=== PATIENT | male | born 1950 | race Caucasian/White ===

== ENCOUNTER 2018-07-08 05:16 | Inpatient (IN) | payer OTHER ==
[2018-07-08] VITALS (9 sets, daily range): BP systolic 111–132; BP diastolic 61–84
[~2018-07-08] VITALS: Ht 180.3 cm; Wt 113.4 kg
[2018-07-08] MEDS ORDERED: ACETAMINOPHEN 325 MG TABLET ONE (05:44)
[2018-07-08] MEDS ORDERED: oxyCODONE HCL SR 10MG TAB.SR.12H PO ONE (05:44)
[2018-07-08] MEDS ORDERED: CELECOXIB 100 MG CAPSULE ONE (05:44)
[2018-07-08] MEDS ORDERED: BACITRACIN 50000 UNITS/VIAL ONE (06:10)
[2018-07-08] MEDS ORDERED: MIDAZOLAM HCL 2 MG/2ML VIAL ONE (06:39)
[2018-07-08] MEDS ORDERED: SCOPOLAMINE HBR 1 EA PATCH.TD72 TD ONE (06:40)
[2018-07-08] MEDS ORDERED: MORPHINE SULFATE/PF 10 MG/10ML (1MG/ML) AMPUL ONE (06:40)
[2018-07-08] MEDS ORDERED: FENTANYL PF 100MCG/2ML AMPUL ONE (06:41)
[2018-07-08] MEDS ORDERED: BUPIVACAINE 0.75% DEXT-PF 2 ML AMPUL ONE (07:00)
[2018-07-08] MEDS ORDERED: TRANEXAMIC ACID 3,000 MG in SODIUM CHLORIDE IRRIG SOLUTION 70 ML IR ONE (07:00)
--- NOTE | 2018-07-08 10:00 | NUR ---
Patient arrived on unit via bed from Day-Surgery with PACU staff. Awake, alert and oriented x4. Stable condition. Family present at bedside. Vital signs stable upon arrival.
[2018-07-08] MEDS ORDERED: SENNOSIDES 8.6 MG TABLET PO PRN (10:30)
[2018-07-08] MEDS ORDERED: DOCUSATE SODIUM 250 MG CAPSULE PO PRN (10:30)
[2018-07-08] MEDS ORDERED: BISACODYL SUPP (10 MG) 10 MG/SUPP.RECT SUPP.RECT RC PRN (10:30)
[2018-07-08] MEDS ORDERED: ZOLPIDEM TARTRATE 5 MG TABLET PO PRN (10:30)
[2018-07-08] MEDS ORDERED: HYDROCODONE/APAP 5/325MG 1 EACH TABLET PO PRN (10:30)
[2018-07-08] MEDS ORDERED: HYDROMORPHONE INJ 2 MG/ML DISP.SYRIN IV PRN (10:30)
[2018-07-08] MEDS ORDERED: ONDANSETRON HCL/PF 4 MG/2 ML VIAL IVP PRN (10:30)
[2018-07-08] MEDS ORDERED: ACETAMINOPHEN 325 MG TABLET PO PRN (10:30)
--- NOTE | 2018-07-08 10:30 | NUR ---
MS licensing services clerk Notes Patient awake, resting in bed. Semi-Fowlers position. Alert and oriented x4, able to make needs known. No complaints of shortness of breath, chest pain or post-op knee pain at this time. Respirations even and unlabored on 2 L oxygen via nasal cannula, no acute distress noted. Peripheral IV to the left hand 18 gauge, intact, patent and infusing LR at 100 ml/hr. Godinez catheter in place from OR, intact and draining clear, yellow urine. Skin assessment completed, skin intact. Dressing (ellen wrap) to the right lower extremity/knee in place from OR, intact with no signs of strikethrough. Post-operative orders noted to be carried out. Oriented patient and family to unit, room and safety precautions. Personal belongings inventoried. Vital signs to be completed per post-operative protocol. Updated patient on current plan of care and safety measures. Safety and fall precautions in place: bed in lowest and locked position, side rails up x2, bed alarm on, call light and personal possessions within reach. Family present at bedside. Will continue to monitor and intervene as needed. Addendum: 07/08/18 at 1827 by TRAVIS MICHAEL RN External internet marketing consultant in place: currently normal sinus rhythm at 68 bpm.
[2018-07-08] MEDS ORDERED: diphenhydrAMINE HCL 25 MG CAPSULE PO PRN (11:00)
[2018-07-08] MEDS ORDERED: NALOXONE HCL 0.4 MG/ML AMPUL IV PRN ×2 (11:00)
[2018-07-08] MEDS ORDERED: HYDROMORPHONE 1 MG/1 ML DISP.SYRIN IV PRN (11:00)
[2018-07-08] MEDS ORDERED: CLONIDINE HCL 0.1 MG TABLET PO PRN (11:00)
[2018-07-08] MEDS ORDERED: MAGNESIUM HYDROXIDE 30 ML UDC PO PRN (11:00)
[2018-07-08] MEDS ORDERED: ONDANSETRON HCL/PF 4 MG/2 ML VIAL IV PRN (11:00)
[2018-07-08] MEDS ORDERED: HYDROMORPHONE 1 MG/1 ML DISP.SYRIN SQ PRN (11:00)
[2018-07-08] MEDS ORDERED: MAG HYDROX/AL HYDROX/SIMETH 30 ML UDC PO PRN (11:00)
[2018-07-08] MEDS ORDERED: diphenhydrAMINE HCL 50 MG/ML VIAL IV PRN (11:00)
[2018-07-08] MEDS ORDERED: oxyCODONE IR immediate release 5 MG PO PRN (11:00)
[2018-07-08] MEDS: IV LR 1000 ML 1,000 ML IV PRN ×2 (16:01→23:51)
[2018-07-08] MEDS: DOCUSATE SODIUM 100 MG CAPSULE PO SCH (16:01)
[2018-07-08] MEDS: CEFAZOLIN 1 GM in IV D5W 50 ML IV SCH ×2 (16:01→23:51)
--- NOTE | 2018-07-08 18:23 | NUR ---
oil well gun perforator operatorrattle leak and squeak repairer Notes Patient awake, resting in bed. Semi-Fowlers position. Alert and oriented x4, able to make needs known. No complaints of shortness of breath, chest pain or post-op knee pain at this time. Respirations even and unlabored on room air, no acute distress noted. External secured entrance monitor in place: currently normal sinus rhythm at 71 bpm. Peripheral IV to the left hand 18 gauge, intact, patent and infusing LR at 100 ml/hr. Godinez catheter in place from OR, intact and draining clear, yellow urine. Dressing (ellen wrap) to the right lower extremity/knee in place from OR, intact with no signs of strikethrough. Ice bag placed to site for pain management, no complaints of pain at this time. All due medications given as ordered. Updated patient on current plan of care and safety measures. Safety and fall precautions in place: bed in lowest and locked position, side rails up x2, bed alarm on, call light and personal possessions within reach. Family present at bedside. Will endorse to wall mirror department supervisor RN for continuity of care. Addendum: 07/09/18 at 0745 by TRAVIS MICHAEL RN Correction: Closing Note
--- NOTE | 2018-07-08 19:40 | NUR ---
TELE/RN NOTES RECEIVED PT. LYING IN BED. PT. IS AWAKE, ALERT AND ORIENTED X4. BREATHING EVEN AND UNLABORED ON ROOM AIR. NO SOB, RESPIRATORY DISTRESS OR COMPLAINTS OF PAIN NOTED AT THIS TIME. PT. STATES PAIN MEDICATION HE RECEIVED EARLIER WAS VERY EFFECTIVE AND HIS PAIN IS GONE AT THIS TIME. PT.WITH EXTERNAL PRESIDENT CEO & FOUNDER PRESENT AND INTACT CURRENT RHYTHM = SINUS RHYTHM HR 76. PT. WITH LEFT FOREARM 18 GAUGE PERIPHERAL IV PRESENT, PATENT AND INTACT ADMINISTERING TO PT. LR @ 100ML/HR. PT. WITH RIGHT KNEE POST OP DRESSING AND IMMOBILIZER PRESENT AND INTACT. DRESSING IS CLEAN, DRY AND INTACT. NO BLEEDING OR DRAINAGE NOTED AT THIS TIME. PT. WITH THOMAS CATHETER PRESENT, PATENT AND INTACT DRAINING CLEAR YELLOW URINE. BED LOCKED AND IN LOWEST POSITION, SIDE RAILS UP X2, CALL LIGHT WITHIN REACH, WILL CONTINUE TO MONITOR.
[2018-07-08] MEDS: LORAZEPAM 1 MG TABLET PO SCH (22:25)
[2018-07-08] MEDS: FAMOTIDINE (20 MG) 20 MG TABLET PO SCH (22:25)
[2018-07-09] VITALS (9 sets, daily range): BP systolic 107–151; BP diastolic 72–84
--- NOTE | 2018-07-09 06:21 | NUR ---
TELE/RN NOTES PT. IS LYING IN BED RESTING, EASILY AROUSABLE TO NAME. BREATHING EVEN AND UNLABORED ON 2LPM O2 VIA NC.. NO SOB, RESPIRATORY DISTRESS OR COMPLAINTS OF PAIN NOTED AT THIS TIME. PT.WITH EXTERNAL ENERGY CONSERVATION ENGINEER PRESENT AND INTACT CURRENT RHYTHM = SINUS RHYTHM HR 72. PT. WITH LEFT FOREARM 18 GAUGE PERIPHERAL IV PRESENT, PATENT AND INTACT ADMINISTERING TO PT. LR @ 100ML/HR. PT. WITH RIGHT KNEE POST OP DRESSING AND IMMOBILIZER PRESENT AND INTACT. DRESSING IS CLEAN, DRY AND INTACT. NO BLEEDING OR DRAINAGE NOTED AT THIS TIME. PT. WITH THOMAS CATHETER PRESENT, PATENT AND INTACT DRAINING CLEAR YELLOW URINE. ALL PT. NEEDS MET. BED LOCKED AND IN LOWEST POSITION, SIDE RAILS UP X2, CALL LIGHT WITHIN REACH, WILL ENDORSE TO DAYSHIFT NURSE FOR CONTINUITY OF CARE.
--- NOTE | 2018-07-09 07:30 | NUR ---
credit products officer Closing Notes Patient asleep, resting in bed. Semi-Fowlers position. Alert and oriented x4, able to make needs known. No complaints of shortness of breath, chest pain or post-op knee pain at this time. Respirations even and unlabored on 2 L oxygen via nasal cannula, no acute distress noted. Continuous monitoring in place. External director of cardiac rehabilitation in place: currently normal sinus rhythm at 65 bpm. Peripheral IV to the left hand 18 gauge, intact, patent and infusing LR at 100 ml/hr. Godinez catheter in place from OR, intact and draining clear, yellow urine. Dressing (ellen wrap) to the right lower extremity/knee in place, intact with no signs of strikethrough. Updated patient on current plan of care and safety measures. Safety and fall precautions in place: bed in lowest and locked position, side rails up x2, bed alarm on, call light and personal possessions within reach. Will continue to monitor and intervene as needed. Addendum: 07/09/18 at 1107 by TRAVIS MICHAEL RN Correction: Opening Notes
[2018-07-09] MEDS: ASPIRIN 325 MG TABLET PO SCH (08:27)
[2018-07-09] MEDS: DOCUSATE SODIUM 100 MG CAPSULE PO SCH ×2 (08:27→16:30)
[2018-07-09] MEDS: FAMOTIDINE (20 MG) 20 MG TABLET PO SCH ×2 (08:28→22:02)
[2018-07-09 08:40] LABS: HEMOGLOBIN 15.1 g/dL (13.5-17.5)
[2018-07-09 09:50] LABS: BASOPHILS % (AUTO) 0.3 % (0.0-2.0); EOSINOPHILS % (AUTO) 0.6 % (0.0-6.0); HEMATOCRIT 44 % (39-51); HEMOGLOBIN 15.1 g/dL (13.5-17.5); LYMPHOCYTES # (AUTO) 1.2 /CMM (0.8-4.8); LYMPHOCYTES % (AUTO) 18.2 % (20.0-44.0); MEAN CORPUSCULAR HGB CONC 34 g/dl (31.0-36.0); MEAN CORPUSCULAR VOLUME 96 fL (80-96); MONOCYTES # (AUTO) 0.9 /CMM (0.1-1.30); MONOCYTES % (AUTO) 13.4 % (2.0-12.0); NEUTROPHILS # (AUTO) 4.5 /CMM (1.8-8.9); NEUTROPHILS % (AUTO) 67.5 % (43.0-81.0); PLATELET COUNT (AUTO) 162 /CMM (150-450); RED BLOOD CELL COUNT(AUTO) 4.59 MIL/uL (4.5-6.0); WHITE BLOOD COUNT (AUTO) 6.6 K/uL (4.3-11.0)
[2018-07-09 09:57] LABS: ALBUMIN 3.2 g/dL (3.4-5.0); BILIRUBIN,TOTAL 0.9 mg/dL (0.2-1.0); CALCIUM, SERUM 8.4 mg/dL (8.5-10.1); TOTAL PROTEIN, SERUM 6.3 g/dL (6.4-8.2)
[2018-07-09] MEDS: oxyCODONE IR immediate release 5 MG PO PRN ×4 (10:02→19:37)
--- NOTE | 2018-07-09 11:08 | NUR ---
Indwelling catheter removed as ordered per post-operative protocol. No acute events, removal with ease. Void trial initiated, urinal at bedside.
[2018-07-09] MEDS: IV LR 1000 ML 1,000 ML IV PRN (13:23)
--- NOTE | 2018-07-09 17:05 | NUR ---
Patient voided via urinal at bedside, 50 mL output. Educated about ways to use urinal properly and increase output after post-op catheter removal. Verbalized understanding. Will continue to monitor.
--- NOTE | 2018-07-09 17:34 | NUR ---
Patient removed from CPM machine, exercised for 6 hours at parameters set by physical therapist. Patient resting comfortably in bed, ice bags to right knee for comfort. Will continue to monitor.
--- NOTE | 2018-07-09 19:30 | NUR ---
MS RN INITIAL NOTES Patient in bed, awake. Stable oxygen saturation on RA. Right knee dressing C/D/I. Pain is controlled per patient. IVF infusing at 100 ml/hr. Safety measure explained, verbalized understanding, will cont to monitor.
--- NOTE | 2018-07-09 19:31 | NUR ---
MS RN Closing Notes Patient asleep, resting in bed. Semi-Fowlers position. Alert and oriented x4, able to make needs known. No complaints of shortness of breath, chest pain or post-op knee pain at this time. Respirations even and unlabored on room air, no acute distress noted. Peripheral IV to the left hand 18 gauge, intact, patent and infusing LR at 100 ml/hr. Dressing (ellen wrap) to the right lower extremity/knee in place, intact with no signs of strikethrough. Ice pack to site for pain management. Pain well managed with medications as needed. Updated patient on current plan of care and safety measures. Safety and fall precautions in place: bed in lowest and locked position, side rails up x2, bed alarm on, call light and personal possessions within reach. Will endorse to night supervisor RN for continuity of care.
[2018-07-09] MEDS: LORAZEPAM 1 MG TABLET PO SCH (22:05)
[2018-07-10] MEDS: IV LR 1000 ML 1,000 ML IV PRN (03:29)
[2018-07-10] MEDS: oxyCODONE IR immediate release 5 MG PO PRN ×5 (03:38→22:37)
--- NOTE | 2018-07-10 06:26 | NUR ---
MS RN CLOSING NOTES Patient in bed, stable oxygen saturation on RA, on low's 92%, denies shortness of breath. IVF infusing, maintained at 100 ml/hr. Voiding well, urine output adequate. No BM this shift. Right knee pain dressing C/D/I, pain is controlled with PRN Oxy IR, ice pack to right knee. Planned discharge home with HH. Maintained safety. Will endorse to oncoming RN.
[2018-07-10 06:50] LABS: CALCIUM, SERUM 8.6 mg/dL (8.5-10.1); CREATININE 0.9 mg/dL (0.6-1.3); POTASSIUM 4.1 mmol/L (3.5-5.1)
[2018-07-10 06:54] LABS: BASOPHILS % (AUTO) 0.3 % (0.0-2.0); EOSINOPHILS % (AUTO) 0.5 % (0.0-6.0); HEMATOCRIT 45 % (39-51); HEMOGLOBIN 15.6 g/dL (13.5-17.5); LYMPHOCYTES % (AUTO) 14.2 % (20.0-44.0); MEAN CORPUSCULAR HGB CONC 35 g/dl (31.0-36.0); MEAN CORPUSCULAR VOLUME 96 fL (80-96); MONOCYTES % (AUTO) 13.6 % (2.0-12.0); NEUTROPHILS # (AUTO) 5.2 /CMM (1.8-8.9); NEUTROPHILS % (AUTO) 71.4 % (43.0-81.0); PLATELET COUNT (AUTO) 175 /CMM (150-450); RED BLOOD CELL COUNT(AUTO) 4.65 MIL/uL (4.5-6.0); WHITE BLOOD COUNT (AUTO) 7.3 K/uL (4.3-11.0)
--- NOTE | 2018-07-10 07:35 | NUR ---
RN NOTES PATIENT A/OX4, BREATHING EVEN AND UNLABORED, ON ROOM AIR AND SATTING WELL. NO SOB NOTED. ENCOURAGED PATIENT TO AMBULATE TODAY, AND TO CALL FOR ASSISTANCE DURING ADLS. PATIENT C/O MILD PAIN BUT TOLERABLE AT THIS TIME. IVF INFUSING AND TOLERATING WELL, NEEDS ATTENDED, CALL LIGHT WITHIN REACH, WILL CONTINUE TO MONITOR.
[2018-07-10 08:00] VITALS: BP 141/81
[2018-07-10] MEDS: ASPIRIN 325 MG TABLET PO SCH (08:15)
[2018-07-10] MEDS: DOCUSATE SODIUM 100 MG CAPSULE PO SCH ×2 (08:15→16:20)
[2018-07-10] MEDS: FAMOTIDINE (20 MG) 20 MG TABLET PO SCH ×2 (08:15→21:36)
[2018-07-10] MEDS ORDERED: ASPI-992 PO (08:35)
[2018-07-10] MEDS ORDERED: HYDROMORPHONE 1 MG/1 ML DISP.SYRIN SQ ONE (10:53)
[2018-07-10] MEDS ORDERED: MAGNESIUM HYDROXIDE 30 ML UDC PO ONE (10:53)
--- NOTE | 2018-07-10 14:47 | NUR ---
RN NOTES PT RECOMMENDED FOR PATIENT TO STAY ONE MORE DAY, PATIENT AGREED. DR SINGH MADE AWARE AND IS OK WITH PATIENT STAYING. DISCHARGE HELD AT THIS TIME. PATIENT A/OX4, NO DISTRESS NOTED. BREATHING EVEN AND UNLABORED, PIV HEPLOCK. DRESSING CHANGED DONE TODAY. INCISION SITE FREE OF S/SX OF INFECTION. WILL CONTINUE TO MONITOR.
[2018-07-10 16:00] VITALS: BP 136/76
--- NOTE | 2018-07-10 18:32 | NUR ---
RN NOTES PATIENT A/OX4, NAD, BREATHING EVEN AND UNLABORED, NO SOB NOTED. DENIES PAIN OR DISCOMFORT LONG HE'S LAYING STILL. ENCOURAGED PATIENT TO AMBULATE WITH WALKER, PROVIDED A COMMODE, NEEDS ATTENDED AND MET, CALL LIGHT WITHIN REACH, WILL ENDORSE TO EDUCATIONAL TECHNOLOGY SPECIALIST FOR BRANDIN.
--- NOTE | 2018-07-10 19:30 | NUR ---
MS RN NOTE RECEIVED PT. IN STABLE CONDITION A&O X4, ABLE TO MAKE NEEDS KNOWN. NO SIGNS OF SOB OR DISTRESS. NO CURRENT COMPLAINTS OF PAIN. SX. SITE INTACT, NO SIGNS OF INFECTION OR LEAKAGE. ALL CURRENT NEEDS MET. SAFETY PRECAUTIONS IN PLACE: BED LOW, LOCKED, UPPER RAILS UP, AND CALL LIGHT WITHIN REACH. WILL CONT. TO MONITOR.
[2018-07-10 20:00] VITALS: BP 139/79
--- NOTE | 2018-07-10 20:00 | NUR ---
MS RN NOTE PT. NOTED WITH FEVER OF 99.7. TYLENOL 650 MG GIVEN. WILL CONT. TO MONITOR.
[2018-07-10] MEDS: LORAZEPAM 1 MG TABLET PO SCH (21:36)
[2018-07-10 22:34] VITALS: BP 132/85
--- NOTE | 2018-07-10 22:37 | NUR ---
MS RN NOTE PRN OXY IR 15 MG GIVEN PO FOR PAIN 09/26 IN R KNEE. WILL CONT. MONITOR. PT.
--- NOTE | 2018-07-10 23:00 | NUR ---
MS RN NOTE TEMP RECHECKED, NOTED WITH TEMP OF 98.2.
--- NOTE | 2018-07-11 00:35 | NUR ---
MS RN NOTE PT. SEEN AND EXAMINED BY DR. FARR WITH NO NEW ORDERS AT THIS TIME.
[2018-07-11] MEDS: oxyCODONE IR immediate release 5 MG PO PRN ×5 (01:38→16:25)
--- NOTE | 2018-07-11 01:38 | NUR ---
MS RN NOTE PRN OXY IR 15 MG PO GIVEN FOR PAIN IN THE R KNEE. WILL CONT. TO MONITOR.
[2018-07-11] MEDS: ASPIRIN 325 MG TABLET PO SCH (06:35)
--- NOTE | 2018-07-11 06:39 | NUR ---
MS RN NOTE PT. IN STABLE CONDITION A&O X4, ABLE TO MAKE NEEDS KNOWN. NO SIGNS OF SOB OR DISTRESS. NO CURRENT COMPLAINTS OF PAIN. SX. SITE INTACT, NO SIGNS OF INFECTION OR LEAKAGE. ALL CURRENT NEEDS MET. SAFETY PRECAUTIONS IN PLACE: BED LOW, LOCKED, UPPER RAILS UP, AND CALL LIGHT WITHIN REACH. WILL CONT. TO MONITOR AND ENDORSE TO NEXT SHIFT FOR BRANDIN.
[2018-07-11 08:00] VITALS: BP 135/81
[2018-07-11] MEDS: DOCUSATE SODIUM 100 MG CAPSULE PO SCH (08:39)
[2018-07-11] MEDS: FAMOTIDINE (20 MG) 20 MG TABLET PO SCH (08:39)
[2018-07-11 09:00] VITALS: BP 135/81
[2018-07-11 16:00] VITALS: BP 132/86
--- NOTE | 2018-07-11 16:29 | NUR ---
PATIENT CLEARED FOR D/C BY . PATIENT IN STABLE CONDITION , VS ARE WITHIN NORMAL RANGE, ALERT AND ORIENTED X4, ON ROOM AIR BREATHING UNLABORED AND EVEN. EDUCATION AND D/C INSTRUCTIONS PROVIDED TO THE PATIENT AND HIS ; BOTH VERBALIZED UNDERSTANDING. PATIENT WILL SEE ON 07/21/18 ( HAS AN APPOINTMENT).INCISIONAL DRESSING CHANGED PRIOR DISCHARGED,PICTURE TAKEN AND PLACED IN THE CHART. PAIN MEDICATION GIVEN. IV LINE REMOVED. ID WRIST BANDS REMOVED. PT SAFELY TRANSFERRED TO CAR VIA WHEELCHAIR ACCOMPANIED BY SUPERVISOR SEWING ROOM AND .
== END 2018-07-11 16:36 | disposition home health service (06) | DRG 470 ==
LOC: DS 05:16 → MED 09:50 → TELE 16:31 → MED 07-09 21:55
PROVIDERS: ADMIT Specialist; ATTEND Family Medicine
PROC: 0SRC0J9 Replacement of Right Knee Joint with Synthetic Substitute, Cemented, Open Approach (ICD-10-PCS; principal; 2018-07-08)
DX: M17.11 Unilateral primary osteoarthritis, right knee (principal); E44.1 Mild protein-calorie malnutrition; E66.9 Obesity, unspecified; Z68.34 Body mass index [BMI] 34.0-34.9, adult; Z96.643 Presence of artificial hip joint, bilateral; Z85.820 Personal history of malignant melanoma of skin
CPT/HCPCS: 36415; 80048-TC; 80053-TC; 85025-TC; 85027-TC; 86850-TC; 86921-TC; 87081-TC; 88305-TC; 88311-TC; 97110-TC; 97116-TC; 97530-TC; 97760-TC; A4217; A6253; A6402; C1713; G0378; J0690; J1100; J1170; J2001; J2250; J2274; J2704; J3010; J3490; J7060; J7120; L1830

== ENCOUNTER → 2020-07-15 | Outpatient (CLI) | payer OTHER ==
[~2020-07-15] MED LIST: ASPI-992 PO; FURO20TA4 PO; HYDR-3972 PO; POTA10TA PO
== END | disposition home or self-care (01) ==
LOC: LAB 09:00
PROVIDERS: ATTEND Specialist
DX: Z01.812 Encounter for preprocedural laboratory examination (principal); Z20.822 Contact with and (suspected) exposure to COVID-19
CPT/HCPCS: C9803; U0003

== ENCOUNTER 2020-07-19 07:43 | Inpatient (IN) | payer OTHER ==
[~2020-07-19] VITALS: Ht 180.3 cm; Wt 111.1 kg
[~2020-07-19 07:43] MED LIST changes: +ANESTHESIA TRAY IN PYXIS 1 EA TRAY MC ONE; +BUPIVACAINE 0.5 % PF 150 MG/30 ML VIAL ONE; -FURO20TA4 PO; -HYDR-3972 PO; -POTA10TA PO
[2020-07-19] MEDS ORDERED: SEVOFLURANE 250 ML BOTTLE IH ONE (07:48)
[2020-07-19] MEDS ORDERED: MIDAZOLAM HCL 2 MG/2ML VIAL ONE (08:32)
[2020-07-19] MEDS ORDERED: FENTANYL PF 100MCG/2ML AMPUL ONE (08:33)
[2020-07-19] MEDS ORDERED: HYDROMORPHONE INJ 2 MG/ML DISP.SYRIN ONE (10:31)
--- NOTE | 2020-07-19 11:26 | NUR ---
MS RN ADMITTING NOTES RECEIVED PATIENT FROM OR AFTER KNEE SURGERY. PATIENT MEDICALLY STABLE, AWAKE, A/O X4. VITAL SIGNS WITHIN NORMAL LIMITS: BP 122/92 HR 87 TEMP 97.8 RR 18 O2 96% ROOM AIR SAFETY PRECAUTIONS IN PLACE; BED IN LOW POSITION AND LOCKED, RAILS UP X2, CALL LIGHT WITHIN REACH. WILL CONTINUE TO MONITOR PATIENT.
[2020-07-19] MEDS ORDERED: IV LR 1000 ML 1,000 ML IV PRN (11:30)
[2020-07-19] MEDS ORDERED: HYDROMORPHONE 1 MG/1 ML DISP.SYRIN IV PRN (11:30)
[2020-07-19] MEDS ORDERED: oxyCODONE/APAP (5/325 MG) 1 UDTAB TABLET PO PRN (11:30)
--- NOTE | 2020-07-19 11:53 | NUR ---
MS RN NOTES VS AFTER 15 MIN BP 127/81 HR 75 TEMP 97.8 RR 18 O2 94 RA WILL CONTINUE TO MONITOR
[2020-07-19] MEDS ORDERED: HYDR-3972 PO (13:30)
[2020-07-19] MEDS ORDERED: POTA10TA PO (13:31)
[2020-07-19] MEDS ORDERED: FURO20TA4 PO (13:31)
[2020-07-19] MEDS: ANCEF 1 GM/50 ML D5W IV SCH (16:04)
--- NOTE | 2020-07-19 18:48 | NUR ---
MS RN CLOSING NOTE PATIENT IN BED, AWAKE, ALERT, ORIENTED X4. ABLE TO MAKE NEEDS KNOWN. VERBALLY RESPONSIVE. L. HAND IV # 20 G INTACT AND PATENT RUNNING LR 100 MLS/HR. NO COMPLAINT OF PAIN OR DISCOMFORT AT THIS TIME. ON ROOM AIR, BREATHING EVEN AND NON-LABORED. ALL NEEDS ATTENDED WELL. SAFETY MEASURES KEPT IN PLACE; BED IN LOWEST POSITION AND LOCKED. CALL LIGHT WITHIN EASY REACH. NO SIGNIFICANT CHANGES SINCE POST-OP. WILL ENDORSE PLAN OF CARE TO METAL CUTTER.
--- NOTE | 2020-07-19 19:30 | NUR ---
MS RN OPENING NOTE RECEIVED PATIENT IN BED. A/OX4. TOLERATING ROOM AIR. RESPIRATIONS ARE EVEN AND UNLABORED. NO S/S SOB NOTED. NO C/O PAIN AT THIS TIME. IN NO APPARENT DISTRESS. IV ACCESS IN LEFT HAND #20 RUNNING LR@#100ML/HR. BED IS LOW AND LOCKED, HOB ELEVATED IN JUNE FOWLERS, SIDE RAILS UP X2, CALL LIGHT WITHIN REACH. WILL CONTINUE TO MONITOR THROUGHOUT SHIFT.
[2020-07-19 20:00] VITALS: BP 126/75
[2020-07-20] MEDS: ANCEF 1 GM/50 ML D5W IV SCH (00:01)
--- NOTE | 2020-07-20 06:11 | NUR ---
MS RN CLOSING NOTE PATIENT RESTING IN BED. A/OX4. REMAINS TOLERATING ROOM AIR. NO RESP DISTRESS. NO C/O PAIN THROUGHOUT SHIFT. NO DISTRESS. IV ACCESS MAINTAINED IN LEFT HAND #20 SALINE LOCKED. BED REMAINS LOW AND LOCKED, HOB ELEVATED IN JUNE FOWLERS, SIDE RAILS UP X2, CALL LIGHT WITHIN REACH. WILL ENDORSE TO ONCOMING SHIFT.
[2020-07-20] MEDS: oxyCODONE/APAP (5/325 MG) 1 UDTAB TABLET PO PRN ×2 (07:17→14:07)
--- NOTE | 2020-07-20 07:20 | NUR ---
RN MS OPENING NOTES PT WAS SEEN AWAKE IN BED. PT IS ALERT AND ORIENTED X 3. PT HAD 5/10 ACHING PAIN IN HIS RIGHT KNEE. PT WAS GIVEN PO PERCOCET AT 0717. WILL CONTINUE TO MONITOR PAIN. PT IS ON ROOM. BREATHING IS EVEN AND NONLABORED. 20 [address]AGE SL ON LEFT HAND INTACT AND PATENT. ALL SAFETY MEASURES IN PLACE. CALL LIGHT WITHIN REACH. WILL CONTINUE TO MONITOR THE PT.
[2020-07-20 08:00] VITALS: BP 135/89
[2020-07-20] MEDS ORDERED: POTASSIUM CHLORIDE 10 MEQ TABLET.SA PO SCH (09:00)
[2020-07-20] MEDS ORDERED: FUROSEMIDE 20 MG TABLET PO SCH (09:00)
--- NOTE | 2020-07-20 14:09 | NUR ---
RN MS NOTES PT HAD 7/10 ACHING PAIN IN HIS RIGHT KNEE. PT WAS GIVEN 1 TAB PO PERCOCET AT 1407. WILL CONTINUE TO MONITOR PAIN.
--- NOTE | 2020-07-20 15:38 | NUR ---
RN NOTES PT'S ANTERIOR SIDE OF RIGHT KNEE DRESSING NOTED SOAKING WITH BLOOD. DR ANDERSON CALLED AND MADE VERBAL ORDER TO CHANGE DRESSING. HE ALSO CLEAR PT FOR DISCHARGE TODAY. ORDERING MACHINE OPERATOR HUSSAIN EUCEDA MADE AWARE OF DR ANDERSON ORDERS. WILL CARRY OUT ORDER.
--- NOTE | 2020-07-20 15:42 | NUR ---
RN NOTES PT'S DRESSING ON RIGHT KNEE CHANGED. SURGICAL INCISION AND ANJELICA WERE ALL INTACT WITH NO ACTIVE BLEEDING NOTED. PHOTO TAKEN AND FILED IN PT'S CHART. WILL CONTINUE TO MONITOR.
--- NOTE | 2020-07-20 17:31 | NUR ---
RN DISCHARGED NOTES PT DISCHARGED HOME IN STABLE CONDITION. A/O X4. ABLE TO MAKE NEEDS KNOWN. ON ROOM AIR, TOLERATING WELL WITH NO ACUTE RESPIRATORY DISTRESS NOTED. ALL NEEDS AND CARE ATTENDED WELL. V/S TAKEN, STABLE AND RECORDED. ALL BELONGINGS ACCOUNTED FOR. PHOTOS OF RIGHT KNEE SURGICAL SITE TAKEN AND FILED IN PT'S CHART. IV ACCESS REMOVED ON LEFT HAND WITH MINIMAL AMOUNT OF BLEEDING NOTED, DRY PRESSURE DRESSING APPLIED. HEALTH TEACHINGS AND DISCHARGED INSTRUCTIONS GIVEN TO PT, VERBALIZED UNDERSTANDING. PT LEFT UNIT @ 1725 VIA WHEELCHAIR ACCOMPANIED BY LAWANDA ANNA TO LOBBY. PT'S DANIELA WILL DRIVE PT'S HOME. CHARGE NURSE AWARE OF DISCHARGE.
== END 2020-07-20 17:25 | disposition home or self-care (01) | DRG 467 ==
LOC: DS 07:43 → MED 10:59
PROVIDERS: ADMIT Nurse Practitioner Acute Care; ATTEND Nurse Practitioner Acute Care
PROC: 0SWC0JC Revision of Synthetic Substitute in Right Knee Joint, Patellar Surface, Open Approach (ICD-10-PCS; principal; 2020-07-19)
DX: T84.032A Mechanical loosening of internal right knee prosthetic joint, initial encounter (principal); D68.59 Other primary thrombophilia; M23.41 Loose body in knee, right knee; M19.90 Unspecified osteoarthritis, unspecified site; G47.33 Obstructive sleep apnea (adult) (pediatric); Z96.643 Presence of artificial hip joint, bilateral; Z96.651 Presence of right artificial knee joint; Q74.1 Congenital malformation of knee; Y92.009 Unspecified place in unspecified non-institutional (private) residence as the place of occurrence of the external cause; Y79.2 Prosthetic and other implants, materials and accessory orthopedic devices associated with adverse incidents; E66.9 Obesity, unspecified; Z68.34 Body mass index [BMI] 34.0-34.9, adult
CPT/HCPCS: 87081-TC; 97116-TC; 97530-TC; A4217; A6253; A6403; C1713; C1776; G0378; J0690; J1100; J1170; J1885; J2250; J2405; J2704; J2765; J3010; J3490; J7060; J7120